=== PATIENT | female | born 1990 | race Caucasian/White ===

== ENCOUNTER → 2017-11-22 | Outpatient (CLI) | payer OTHER ==
--- NOTE | 2017-11-22 15:07 | MAMMOGRAPHY REPORT ---
ULTRASOUND OF RIGHT BREAST: 11/22/2017 CLINICAL HISTORY: The patient reports that she has felt denser tissue in the right upper outer breast for some time, although over the last month the area feels more defined. The provider order reports a 2 cm x 1 cm area of density in the right upper outer quadrant at 9:00. COMPARISON: No prior exams were available for comparison. TECHNIQUE: Real-time targeted ultrasound of the right breast was performed. FINDINGS: Real-time, high-resolution targeted ultrasound was performed of the area of the palpable ab normality pointed out by the patient, in the right breast at approximately 10:00, centered around 5 c m from the nipple. Additionally, targeted ultrasound was performed of the remainder of the right 9 a nd 10:00 breast. Sonographically normal tissue is seen in this region, without evidence of a mass or other suspicious sonographic abnormality. IMPRESSION: ACR BI-RADS CATEGORY 1: NEGATIVE No suspicious sonographic abnormality at the site of the palpable right breast abnormality pointed ou t by the patient. There is no sonographic evidence of malignancy. Recommend clinical follow-up; any decision to biopsy should be based on clinical grounds. The patient was verbally notified of the results. Gracie Mon M.D. /:11/22/2017 10:07:26 Secondary Teacher: Gracie Mon MD, [facility] letter sent: Normal 1/2 BI-RADS Code: ACR BI-RADS Category 1: Negative
== END | disposition home or self-care (01) ==
LOC: C.MAMM 09:44
PROVIDERS: ATTEND Internal Medicine
DX: N60.11 Diffuse cystic mastopathy of right breast (principal); N64.4 Mastodynia